=== PATIENT | male | born 1950 | race Caucasian/White ===

== ENCOUNTER 2016-04-24 14:59 | Emergency (ER) | payer OTHER ==
[2016-04-24] MEDS ORDERED: ASPIRIN CHEWTAB 81 MG TABLET ONE ×2 (15:20→15:22)
[2016-04-24 15:33] LABS: ABSOLUTE NEUTROPHIL COUNT 4.1 K/mm3 (1.8-7.7); BASO % 0.4 % (0.2-1.0); EOS # 0.7 (0.0-0.5); HEMATOCRIT 45.1 % (32.0-52.0); HEMOGLOBIN 15.2 gm/l (14.0-18.0); IMM NEUT% 0.3 % (0-1); LYMPH # 1.9 (1.0-4.8); MEAN CELL VOLUME 89.3 fl (80.0-94.0); MEAN CORPUSCULAR HEMOGLOBIN 30.1 pg (27.0-31.0); MEAN CORPUSCULAR HGB CONC 33.7 g/dl (33.0-37.0); MEAN PLATELET VOLUME 9.1 fl (7.4-10.4); MONO # 0.8 (0.0-0.8); NEUT % 54.3 % (43-75); PLATELET COUNT 193 K/mm3 (130-400); RED CELL DISTRIBUTION WIDTH 13.1 % (11.5-14.5)
[2016-04-24 15:44] LABS: ALB/GLOB RATIO 1.5 (>1.0); CALCIUM 9.3 mg/dL (8.6-10.3); TROPONIN I < 0.01 ng/ml (0.0-0.06)
--- NOTE | 2016-04-24 15:45 | RAD ---
Exam: Two-view chest COMPARISON: None INDICATION: Chest pain shortness of breath. Findings: There is a normal cardiac silhouette. There is ectasia of the lower descending thoracic aorta. Lungs are normally inflated. There is minor left basilar atelectasis or scarring. Lung moreno are otherwise clear. There is no pleural effusion. Bones of the chest wall within normal limits. IMPRESSION: Minor left basilar atelectasis or scarring.
[2016-04-24 15:47] LABS: CKMB ISOENZYME 1.9 ng/ml (0.6-6.3)
== END 2016-04-24 16:56 | disposition home or self-care (01) ==
LOC: ED 14:59
DX: R07.9 Chest pain, unspecified (principal); J45.909 Unspecified asthma, uncomplicated
CPT/HCPCS: 85025; 82553; 80053; 84484; 71020; 99283 ×2; 93005; A9270 ×2